=== PATIENT | female | born 1965 | race Caucasian/White ===

== ENCOUNTER 2017-07-12 11:09 | Day surgery (SDC) | payer OTHER ==
[2014-09-10 12:36] VITALS: BMI 25.0
[2017-07-12] MEDS ORDERED: Lactated Ringer's 1,000 ML IV ONE ×3 (11:34)
[2017-07-12] MEDS ORDERED: Lidocaine 1% Inj (20ml) ONE (11:40)
[2017-07-12] MEDS ORDERED: Bupivacaine HCl 0.25% PF (10 ml) Inj ONE (11:40)
[2017-07-12] MEDS ORDERED: ceFAZolin IV 2 gm in Dextrose 0 GM/0 ML BAG IVPB ONE (11:41)
[2017-07-12] MEDS ORDERED: Midazolam 2 MG/2 ML VIAL ONE (12:11)
[2017-07-12] MEDS ORDERED: Propofol 10 mg/ml Inj (20 ML) ONE (12:11)
[2017-07-12] MEDS ORDERED: Lidocaine Hydrochloride 5 ML INJ ONE (12:15)
[2017-07-12] MEDS ORDERED: Rocuronium 10 mg/ml (5 ml) ONE (12:15)
[2017-07-12] MEDS: ceFAZolin IV 1 gm in Dextrose 1 GM/50 ML BAG IVPB ONE ×2 (12:41→12:44)
[2017-07-12] MEDS ORDERED: Neostigmine Methylsulfate 3mg/3ml Syringe IV ONE (13:03)
[2017-07-12] MEDS ORDERED: Absorbable Gelatin Sponge Size 12-7 ONE (13:03)
[2017-07-12] MEDS ORDERED: Absorbable Gelatin Sponge Size 100 ONE (13:03)
[2017-07-12] MEDS ORDERED: HYDROmorphone 0.5 mg/0.5 ml ISec IVP PRN (13:20)
[2017-07-12] MEDS ORDERED: Oxycodone/Acetaminophen 5/325 mg Tab PO PRN (13:22)
[2017-07-12 14:17] VITALS: O2SAT 100
[2017-07-12 15:54] VITALS: BP 132/70; PULSE 68; RESP 18; TEMP 97
--- NOTE | 2017-07-13 06:18 | OP ---
PROCEDURE DATE: 07/12/2017 PREOPERATIVE DIAGNOSIS: Complex hemorrhoids. POSTOPERATIVE DIAGNOSIS: Complex hemorrhoids with rectal tumor/polyp. PROCEDURE PERFORMED: 1. Complex hemorrhoidectomy (60717). 2. Full-thickness transanal excision of rectal tumor/polyp (36016). 3. Advancement flap closure, 12 sq cm (05110). SURGEON: Quinn Sy MD TYPE OF ANESTHESIA: General endotracheal. ESTIMATED BLOOD LOSS: 40 mL. POSTOPERATIVE CONDITION: Stable. INDICATIONS FOR SURGERY: This is a 51-year-old female with complex hemorrhoids who presents for hemorrhoidectomy. GROSS FINDINGS: On anoscopy, a small rectal mass/tumor/polyp was identified and was excised via transanal excision, full thickness, along with the hemorrhoidectomy being performed. DESCRIPTION OF PROCEDURE: The patient was taken to the operating room, general anesthesia was administered and was placed in the prone lithotomy position with the buttocks taped open. Anoscopy was carried out with the above findings. The rectal mass was grasped with an Allis clamp and a full-thickness excision was made using the Bovie via an elliptical incision. A simple closure was performed with a Monocryl. Next, attention was turned to the right anterior hemorrhoid, which was a complex hemorrhoid and was grasped with two elisa clamps. It was ligated at its base using a heavy Monocryl. A generous elliptical incision was made completely surrounding the hemorrhoid and removed. Using heavy Monocryl, generous tissue flaps were raised and advancement flaps were raised in order to prevent anal stenosis. The advancement flap closure was performed using multiple layers of Monocryl in a running fashion. The wound was found to be hemostatic. The anal canal was packed with Gelfoam and an anal block of 0.25% Marcaine was placed. The patient tolerated the procedure well, returned to recovery room in stable condition. Quinn Sy MD
== END 2017-07-12 15:58 | disposition home or self-care (01) ==
LOC: C.SDS 11:09
PROVIDERS: ATTEND Surgery
DX: D37.5 Neoplasm of uncertain behavior of rectum (principal); K64.8 Other hemorrhoids
CPT/HCPCS: 14000; 45172; 46255; J0690; J1100; J2250; J2405; J2704; J2710; J3010; J7120